=== PATIENT | male | born 1950 | race Caucasian/White ===

== ENCOUNTER → 2022-06-02 | Outpatient (CLI) | payer MEDICARE ==
[2022-06-02 08:07] LABS: HEMOGLOBIN 12.6 gm/dl (14.0-17.5); RED BLOOD COUNT 3.92 M/UL (4.20-5.50); WHITE BLOOD COUNT 8.7 K/UL (4.5-11.0)
[2022-06-02 08:44] LABS: BUN/CREATININE RATIO 17 (0-10)
== END ==
LOC: CT 07:31
PROVIDERS: Internal Medicine Hematology & Oncology
DX: C30.0 Malignant neoplasm of nasal cavity (principal)
CPT/HCPCS: 36415; 70470; 70491; 80053; 85025; Q9967